=== PATIENT | female | born 1945 | race Caucasian/White ===

== ENCOUNTER 2019-05-17 07:58 | Day surgery (SDC) | payer MEDICARE, SELFPAY ==
[2019-05-16 14:25] VITALS: BMI 22.6
[2019-05-17 08:10] VITALS: BP 136/68; PULSE 61; RESP 18; TEMP 36.4; O2SAT 98
[2019-05-17] MEDS: sodium chloride 0.9% 1,000 ML 30 ML IV (08:32)
--- NOTE | 2019-05-17 08:35 | ANES.PREANES ---
Pre-Anesthetic Assessment Pre-Anesthetic Assessment: Height/Weight: Height 1.73 m Weight 67.585 kg Temp Pulse Resp BP Pulse Ox 97.6 F 61 18 136/68 98 05/17/19 08:10 05/17/19 08:10 05/17/19 08:10 05/17/19 08:10 05/17/19 08:10 Preop Diagnosis: Subcutaneous mass left forehead and left elbow Proposed Procedure: Operation Date: 05/17/19 10:00 Proposed Procedures p excision of subcutaneous mass of head, excision of subcutaneous mass of left upper extremity 91871 R22.0(Left) - Luis Enrique Lee MD Familial anesthetic complications: No trouble with anestehsia Was Beta Kwan taken within 24 hours: N/A Last intake: Intake Last Liquid Date 05/16/19 Last Liquid Time 20:30 Last Solid Date 05/16/19 Last Solid Time 20:30 Social: Social History: Alcohol (1 glass of wine per night) and No tobacco Exam: Pre-Anes Outpt Exam: alert, oriented x 3, clear to auscultation bilaterally and regular rate & rhythm Airway: Cervical ROM: WNL MP: 2 Additional comments: Missing teeth Pulmonary: Pulmonary: None reported CV/HEM: CV/HEM: None reported : : None reported Hepatic: Hepatic: None reported GI: GI: None reported Metabolic: Metabolic: None reported Musc/skel: Musc/skel: Lower Back Pain Neuropsych: Neuropsych: None reported Anesthetic Plan: ASA status: II Anesthesia: MAC Risk of > 500 ml blood loss (7ml/kg in children): No Meds/Allergies Current Medications: Current Medications Generic Name Dose Route Start Last Admin Trade Name David PRN Reason Stop Dose Admin Sodium Chloride 1,000 mls @ 30 ml s/hr 05/17/19 06:15 05/17/19 08:32 Sodium Chloride 0.9% IV 05/18/19 06:14 30 mls/hr .Q24H VENKATA Administration PFSH Anesthesia PFSH: Social History Smoking and tobacco status: former smoker Alcohol intake: current Alcohol intake frequency: 0-2 Drinks per Day Alcohol type: wine Lives independently: Yes Household members: spouse Marital status: Current occupational status: retired History of recent travel: No Data Anesthesia Cardiac Studies: No Data to Display
--- NOTE | 2019-05-17 10:32 | P.HPUD_ITS ---
H&P update H&P Update: DATE OF SURGERY/PROCEDURE: 05/17/19 DATE H&P PERFORMED: 02/18 H&P UPDATE INFORMATION: H&P completed within last 30 days and No changes to prior documentation PLANNED PROCEDURE: Operation Date: 05/17/19 10:00 Proposed Procedures p excision of subcutaneous mass of head, excision of subcutaneous mass of left upper extremity 98183 R22.0(Left) - Luis Enrique Lee MD Full H&P Medications/Allergies: Current Medications: Current Medications Generic Name Dose Route Start Last Admin Trade Name Freq PRN Reason Stop Dose Admin Sodium Chloride 1,000 mls @ 30 ml s/hr 05/17/19 06:15 05/17/19 08:32 Sodium Chloride 0.9% IV 05/18/19 06:14 30 mls/hr .Q24H VENKATA Administration Perinent History: Medical/Surgical History: Medical History (Updated 05/11/19 @ 12:50 by Luis Enrique Lee MD) Allergic rhinitis (Acute) Chronic pain syndrome (Acute) 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) Osteoarthritis (Acute) Osteoporosis (Acute) Seasonal affective disorder (Acute) Subcutaneous mass of head (Acute) Subcutaneous mass of left upper extremity (Acute) Family History: Family History (Updated 05/11/19 @ 11:13 by KARLOS Oconnell) Mother Emphysema, unspecified Father Heart disease Denies family history of Anesthesia complication Bleeding disorder Social History: Social History Smoking and tobacco status: former smoker Alcohol intake: current Alcohol intake frequency: 0-2 Drinks per Day Alcohol type: wine Lives independently: Yes Household members: spouse Marital status: Current occupational status: retired History of recent travel: No
[2019-05-17] MEDS: lidocaine 1% INJ 20 mL SUBCUT (11:02)
[2019-05-17 11:22] VITALS: BP 114/66; PULSE 65; RESP 18; TEMP 36.8; O2SAT 97
--- NOTE | 2019-05-17 11:24 | PM.OP ---
Operative Report Date of procedure: 05/17/19 Preop Diagnosis: Subcutaneous mass left forehead and left elbow Post-op Findings: Chronically draining cyst left forehead Sebaceous cyst left elbow Procedure Done: Excision of subcutaneous mass left side of the forehead Excision of subcutaneous mass left elbow Specimens removed/disposition: Subcutaneous mass left forehead and left elbow Surgeon: Luis Enrique Lee Anesthesia: MAC Estimated blood loss (mL): 10 Condition: stable Disposition: PACU Procedure: The patient was taken to the operating room and placed under MAC after IV antibiotic had been administered. The forehead and the left elbow was prepped and draped in a sterile manner. 1% lidocaine with 0.5% Marcaine was infiltrated around the 2 lesions. Using a 15 blade a longitudinal incision was made over the subcutaneous mass on the left elbow which measured 2.5 x 2.5 cm. Using electrocautery and sharp dissection the subcutaneous mass was dissected free from the surrounding subcutaneous tissue and sent to pathology. The wound was irrigated saline, hemostasis ensured and subcutaneous tissues approximated using interrupted 3-0 Vicryl suture and skin was closed using running subcuticular 4-0 Monocryl suture and surgical glue. Using a 15 blade an elliptical incision was made around the subcutaneous mass measuring 2 x 2 cm on the left side of the forehead and using electrocautery and sharp dissection the subcutaneous mass was dissected free from the surrounding subcutaneous tissue and underlying frontalis muscle. The wound was irrigated with saline, subcutaneous tissue approximated using interrupted 3-0 Vicryl suture and skin was closed using running subcuticular 4-0 Monocryl suture and surgical glue. The patient was transferred to outpatient area in stable condition.
[2019-05-17] MEDS: HYDROcodone-acetaminophen 5-325 mg Tablet 1 TAB PO (12:04)
[2019-05-17 12:13] VITALS: BP 162/74; PULSE 58; RESP 18; O2SAT 100
== END 2019-05-17 12:22 | disposition home or self-care (01) ==
PROVIDERS: Family Provider Family Medicine; PCP Family Medicine; Visit Provider Surgery
PROC: (CPT 11403; principal; 2019-05-17 10:00)
DX: R22.0 Localized swelling, mass and lump, head (principal); R22.32 Localized swelling, mass and lump, left upper limb; M81.0 Age-related osteoporosis without current pathological fracture; M19.90 Unspecified osteoarthritis, unspecified site; Z82.49 Family history of ischemic heart disease and other diseases of the circulatory system; Z87.891 Personal history of nicotine dependence
CPT/HCPCS: 11403; 11442; 12031; 12051; 12345; 88307; J0690; J2001; J2250; J2704; J3010; J3490; J7030

== ENCOUNTER 2020-04-09 11:51 | Outpatient (CLI) | payer MEDICARE, SELFPAY ==
--- NOTE | 2020-04-09 11:55 | US_ITS ---
WS: [id number] ADDITIONAL VIEWS LEFT MAMMOGRAM LEFT BREAST ULTRASOUND HISTORY: ABNORMAL MAMMOGRAM COMPARISON: 03/20/2020, 01/29/2016 LEFT MAMMOGRAM: Spot compression views and true ML. Well-circumscribed nodule measuring 4.5 mm persists in the medial LEFT breast near 9:00. Posterior in location and may be sebaceous cyst. LEFT BREAST ULTRASOUND 2-D and color Doppler imaging submitted. Minimally complex nodule in the subcutaneous position measures 4 x 3 x 3 mm. Corresponds to the mammo graphic abnormality. Although no tract is identified extending to the skin I suspect this is a sebace ous or epidermal inclusion cyst. If this does enlarged surgical would be necessary. Needle biopsy is not an option for a sebaceous cyst. US/US breast LT limited* [id number] IMPRESSION: BI-RADS: 2-Benign FOLLOW UP: 1 Year Follow-up
== END 2020-04-09 11:52 | disposition home or self-care (01) ==
LOC: RADSHAW 11:54
PROVIDERS: PCP Family Medicine; Visit Provider Family Medicine
DX: R92.8 Other abnormal and inconclusive findings on diagnostic imaging of breast (principal); N63.25 Unspecified lump in the left breast, overlapping quadrants
CPT/HCPCS: 76642; 77065

== ENCOUNTER → 2021-02-19 09:38 | Outpatient (BNVA) | payer MEDICARE, SELFPAY | PROVIDERS: PCP Family Medicine; Referring Provider Family Medicine; Visit Provider Anesthesiology Pain Medicine | DX: G89.29 Other chronic pain (principal); M47.816 Spondylosis without myelopathy or radiculopathy, lumbar region; M51.36 Other intervertebral disc degeneration, lumbar region; M25.551 Pain in right hip; M25.552 Pain in left hip; Z79.891 Long term (current) use of opiate analgesic | CPT/HCPCS: 99204 ==

== ENCOUNTER → 2021-03-09 09:20 | Outpatient (BNVA) | payer MEDICARE, SELFPAY | PROVIDERS: PCP Family Medicine; Visit Provider Anesthesiology Pain Medicine | DX: M47.816 Spondylosis without myelopathy or radiculopathy, lumbar region (principal); M51.36 Other intervertebral disc degeneration, lumbar region; M25.551 Pain in right hip; M25.552 Pain in left hip; Z79.891 Long term (current) use of opiate analgesic | CPT/HCPCS: 99214 ==

== ENCOUNTER → 2021-03-31 13:43 | Outpatient (BNVA) | payer MEDICARE, SELFPAY | PROVIDERS: PCP Family Medicine; Visit Provider Anesthesiology Pain Medicine | DX: M47.816 Spondylosis without myelopathy or radiculopathy, lumbar region (principal); Z79.891 Long term (current) use of opiate analgesic | CPT/HCPCS: 64493; 64494; 64495; J3490 ==

== ENCOUNTER → 2021-04-14 10:44 | Outpatient (BNVA) | payer MEDICARE, SELFPAY | PROVIDERS: PCP Family Medicine; Visit Provider Anesthesiology Pain Medicine | DX: M47.816 Spondylosis without myelopathy or radiculopathy, lumbar region (principal); M51.36 Other intervertebral disc degeneration, lumbar region; M19.90 Unspecified osteoarthritis, unspecified site; M81.0 Age-related osteoporosis without current pathological fracture; Z79.891 Long term (current) use of opiate analgesic; Z87.891 Personal history of nicotine dependence | CPT/HCPCS: 99213 ==

== ENCOUNTER → 2021-04-30 10:06 | Outpatient (BNVA) | payer MEDICARE, SELFPAY | PROVIDERS: PCP Family Medicine; Referring Provider Family Medicine; Visit Provider Internal Medicine | DX: M81.0 Age-related osteoporosis without current pathological fracture (principal); Z87.81 Personal history of (healed) traumatic fracture; Z87.891 Personal history of nicotine dependence | CPT/HCPCS: 99204 ==

== ENCOUNTER 2021-06-23 11:12 | Outpatient (CLI) | payer MEDICARE, SELFPAY ==
--- NOTE | 2021-06-23 11:30 | XR_ITS ---
WS: [id number] DEXA (DUAL ENERGY X-RAY ABSORPTIOMETRY) Bone mineral density was performed using a [employer] machine. HISTORY: osteoporosis COMPARISON: None available. Lumbar spine BMD (L1-L4): 1.090 g/cm2 T score: -0.8 Z score: 0.7 Left forearm BMD: 0.625 g/cm2. T score: -2.9 Z score: -0.7 Marked LEFT curvature lumbar spine scoliosis with asymmetric disc space narrowing. XR/XR DEXA axial skeleton* [id number] IMPRESSION: OSTEOPOROSIS based upon the WHO classification for females.
== END 2021-06-23 11:13 | disposition home or self-care (01) ==
LOC: RAD 11:18
PROVIDERS: PCP Family Medicine; Visit Provider Internal Medicine
DX: M81.0 Age-related osteoporosis without current pathological fracture (principal)
CPT/HCPCS: 77080

== ENCOUNTER 2021-07-29 10:38 | Outpatient (CLI) | payer MEDICARE, SELFPAY ==
--- NOTE | 2021-07-29 10:50 | MM_ITS ---
WS: [id number] BILATERAL SCREENING 3D TOMOSYNTHESIS DIGITAL MAMMOGRAM WITH CAD HISTORY: SCREENING COMPARISON: 03/20/2020, 01/29/2016 Bilateral CC and MLO views submitted. Computer aided detection analyzed. Breast composition: There are scattered areas of fibroglandular density. No suspicious masses, microc alcifications or architectural distortion. Long-term stability of a nodule medial LEFT breast. MM/[place] [id number] IMPRESSION: BI-RADS: 2-Benign FOLLOW UP: 1 Year Follow-up
== END 2021-07-29 10:39 | disposition home or self-care (01) ==
LOC: RAD 10:43
PROVIDERS: PCP Family Medicine; Visit Provider Family Medicine
DX: Z12.31 Encounter for screening mammogram for malignant neoplasm of breast (principal)
CPT/HCPCS: 77063; 77067

== ENCOUNTER → 2021-08-31 10:59 | Outpatient (BNVA) | payer MEDICARE, SELFPAY | PROVIDERS: PCP Family Medicine; Visit Provider Internal Medicine | DX: M81.0 Age-related osteoporosis without current pathological fracture (principal); Z87.81 Personal history of (healed) traumatic fracture; Z87.891 Personal history of nicotine dependence | CPT/HCPCS: 96372; 99213; 99214 ==

== ENCOUNTER → 2021-09-15 10:28 | Day surgery (SDC) | payer MEDICARE, SELFPAY ==
[2021-09-15 11:06] VITALS: BP 136/78; PULSE 64; RESP 18; TEMP 36.4; O2SAT 96
[2021-09-15 11:23] LABS: Calcium 9.6 mg/dL (8.5-10.5)
[2021-09-15] MEDS: denosumab 60 mg SDV SUBCUT (11:28)
--- NOTE | 2021-09-15 11:32 | PC.NURSE ---
Pt to GI lab for Prolia injection. Calcium from today 9.6. Prolia given as ordered.
== END ==
PROVIDERS: PCP Family Medicine; Visit Provider Internal Medicine
DX: M81.0 Age-related osteoporosis without current pathological fracture (principal); Z87.81 Personal history of (healed) traumatic fracture
CPT/HCPCS: 36415; 82310; 96372; J0897

== ENCOUNTER → 2022-01-20 09:59 | Outpatient (BNVA) | payer MEDICARE, SELFPAY | PROVIDERS: PCP Family Medicine; Visit Provider Anesthesiology Pain Medicine | DX: G89.29 Other chronic pain (principal); M47.816 Spondylosis without myelopathy or radiculopathy, lumbar region; M51.36 Other intervertebral disc degeneration, lumbar region; M19.90 Unspecified osteoarthritis, unspecified site; Z87.891 Personal history of nicotine dependence | CPT/HCPCS: 99214 ==

== ENCOUNTER → 2022-02-10 14:07 | Outpatient (BNVA) | payer MEDICARE, SELFPAY | PROVIDERS: PCP Family Medicine; Visit Provider Anesthesiology Pain Medicine | DX: M47.816 Spondylosis without myelopathy or radiculopathy, lumbar region (principal); Z87.891 Personal history of nicotine dependence | CPT/HCPCS: 64635; 64636; J1030 ==

== ENCOUNTER → 2022-02-23 14:23 | Outpatient (BNVA) | payer MEDICARE, SELFPAY | PROVIDERS: PCP Family Medicine; Visit Provider Anesthesiology Pain Medicine | DX: M47.816 Spondylosis without myelopathy or radiculopathy, lumbar region (principal) | CPT/HCPCS: 64635; 64636 ==

== ENCOUNTER → 2022-03-10 09:51 | Outpatient (BNVA) | payer MEDICARE, SELFPAY | PROVIDERS: PCP Family Medicine; Visit Provider Anesthesiology Pain Medicine | DX: M54.16 Radiculopathy, lumbar region (principal); M47.816 Spondylosis without myelopathy or radiculopathy, lumbar region; M51.36 Other intervertebral disc degeneration, lumbar region; M19.90 Unspecified osteoarthritis, unspecified site; M47.819 Spondylosis without myelopathy or radiculopathy, site unspecified; Z87.891 Personal history of nicotine dependence | CPT/HCPCS: 72072; 99214 ==

== ENCOUNTER → 2022-03-15 11:08 | Day surgery (SDC) | payer MEDICARE, SELFPAY ==
[2022-03-15 12:03] VITALS: BP 140/81; PULSE 76; RESP 18; TEMP 35.9; O2SAT 93
[2022-03-15 12:07] LABS: Calcium 9.6 mg/dL (8.5-10.5)
[2022-03-15] MEDS: denosumab 60 mg SDV SUBCUT (12:13)
== END ==
PROVIDERS: PCP Family Medicine; Visit Provider Internal Medicine
DX: M81.0 Age-related osteoporosis without current pathological fracture (principal); Z87.81 Personal history of (healed) traumatic fracture
CPT/HCPCS: 36415; 82310; 96372; J0897

== ENCOUNTER → 2022-04-15 10:16 | Outpatient (BNVA) | payer MEDICARE, SELFPAY | PROVIDERS: PCP Family Medicine; Visit Provider Anesthesiology Pain Medicine | DX: M47.816 Spondylosis without myelopathy or radiculopathy, lumbar region (principal); M51.36 Other intervertebral disc degeneration, lumbar region; M19.90 Unspecified osteoarthritis, unspecified site; M25.551 Pain in right hip; M25.552 Pain in left hip | CPT/HCPCS: 99214 ==

== ENCOUNTER 2022-04-28 10:29 | Outpatient (CLI) | payer MEDICARE, SELFPAY ==
--- NOTE | 2022-04-28 12:30 | CT_ITS ---
WS: [id number] CT LUMBAR SPINE TECHNIQUE: Noncontrast CT of the lumbar spine with coronal and sagittal reformatted images. CLINICAL INFORMATION: M54.16 - Radiculopathy, lumbar region COMPARISON: None. DLP: 1110.[address] scans at [facility] use at least one of these dose optimization techniques: automated e xposure control; mA and/or kV adjustment per patient size (includes targeted exams where dose is matc hed to clinical indication); or iterative reconstruction. FINDINGS: Lumbar scoliosis convex LEFT. Advanced spondylitic changes. Disc space narrowing throughout the lumba r spine worse at L2-L3, L3-L4, and L5-S1 vacuum disc phenomenon. Advanced facet arthropathy lower lum bar spine. Diffuse demineralization involving the pelvis and sacrum. Moderate degenerative arthritis of the sacr oiliac joints. Patient risk for sacral insufficiency fractures. If sacral pain, this can be further e valuated with MRI. Small partially visualized cortical lesion LEFT kidney too small to definitively c haracterize. L1-L2: Mild disc bulging with narrowing of the RIGHT subarticular recess. Moderate facet arthropathy. Narrowing of the RIGHT subarticular recess. Mild RIGHT foraminal narrowing. L2-L3: Disc space narrowing with mild central canal stenosis. Impingement on the traversing RIGHT gre ater than LEFT L3 nerve roots. Advanced facet arthropathy. Mild to moderate RIGHT foraminal narrowing . L3-L4: Mild disc osteophyte complex with endplate ridging. Mild central canal stenosis. Impingement o n the traversing RIGHT greater than LEFT L4 nerve roots. Moderate facet arthropathy. Moderate RIGHT f oraminal narrowing. L4-L5: Slight anterolisthesis L4 on L5. Advanced facet arthropathy. Moderate central canal stenosis. Impingement on the subarticular recess bilaterally. Mild to moderate bilateral foraminal narrowing LE FT greater than RIGHT L5-S1: Advanced facet arthropathy worse in the LEFT. Mild disc osteophytic ridging. Moderate LEFT and no significant RIGHT foraminal narrowing. Spinal canal is patent. Slight impingement on traversing L EFT greater than RIGHT S1 nerve roots. Visualized pelvic bony structures: Normal. Paravertebral soft tissues: Normal. CT/CT lumbar spine wo con* [id number] IMPRESSION: 1. Lumbar scoliosis convex LEFT. No acute compression fractures. 2. Mild central canal stenosis L2-L3, L3-L4, and L4-L5 due to mild disc osteop hyte complexes examination with facet arthropathy and ligamentum flavum hypertr ophy. 3. Mild to moderate RIGHT L1-L2, RIGHT L2-L3, RIGHT L3-L4, LEFT L4-L5, and LEF T L5-S1 foraminal narrowing. 4. Advanced facet arthropathy L3-L4 L4-L5 and LEFT L5-S1. 5. Advanced demineralization in the sacrum and sacral ala with osteopenia. Pat ient at risk for sacral insufficiency fractures. No definite fractures visualiz ed today. This can be further evaluated with MRI if suspicion for sacral insuff iciency fractures.
== END 2022-04-28 10:30 | disposition home or self-care (01) ==
PROVIDERS: PCP Family Medicine; Visit Provider Anesthesiology Pain Medicine
DX: M54.16 Radiculopathy, lumbar region (principal); M41.86 Other forms of scoliosis, lumbar region; M48.061 Spinal stenosis, lumbar region without neurogenic claudication; M25.78 Osteophyte, vertebrae; M47.816 Spondylosis without myelopathy or radiculopathy, lumbar region; M47.817 Spondylosis without myelopathy or radiculopathy, lumbosacral region
CPT/HCPCS: 72131